=== PATIENT | male | born 1985 | race Hispanic/Latino ===

== ENCOUNTER 2024-05-02 11:14 | Observation (INO) | payer OTHER ==
[2024-05-02] VITALS (26 sets, daily range): BP systolic 119–160; BP diastolic 66–102
[~2024-05-02] VITALS: Ht 170.2 cm; Wt 78.0 kg
[2024-05-02 11:54] LABS: BASO% 0.8 % (0-3); EOS% 3.3 % (0-8); HEMATOCRIT 48.9 % (39.0-50.0); HEMOGLOBIN 15.7 g/dl (14.0-18.0); LYMPH% 29.9 % (15-41); MEAN CELL VOLUME 95.5 fL CALC (80.0-100.0); MEAN CORPUSCULAR HGB 30.7 pG CALC (26.0-32.0); MEAN CORPUSCULAR HGB CONC 32.1 g/dL CAL (32.0-36.0); MONO% 12.2 % (2-13); NEUT# 2.74 thou/uL (1.82-7.42); NEUT% 53.8 % (42-76); RED BLOOD COUNT 5.12 mill/uL (4.70-6.10)
[2024-05-02 12:13] LABS: ALBUMIN 4.5 g/dL (3.2-5.0); BILIRUBIN, TOTAL 0.5 mg/dL (0.2-1.3); CREATININE 1.1 mg/dL (0.7-1.3); POTASSIUM 4.1 mmol/l (3.5-5.1); TOTAL PROTEIN 7.2 g/dL (6.3-8.2)
[2024-05-02] MEDS ORDERED: ATORVASTATIN CA20 MG PO (13:24)
[2024-05-02] MEDS ORDERED: LAMICTAL100 M1 PO (13:26)
[2024-05-02] MEDS ORDERED: CLARITIN10 M1 PO (13:28)
[2024-05-02] MEDS ORDERED: FIORICET PO (13:29)
[2024-05-02] MEDS ORDERED: ADVAIR DISK1 INH (13:32)
[2024-05-02] MEDS ORDERED: DEXTROSE 250 ML IV PRN (15:25)
[2024-05-02] MEDS ORDERED: MORPHINE SULFATE 4 MG/ML VIAL IV PRN (15:30)
[2024-05-02] MEDS ORDERED: ACETAMINOPHEN 325 MG/TAB PO PRN (15:30)
[2024-05-02] MEDS ORDERED: lamoTRIgine 100 MG/TAB PO SCH ×2 (21:00)
[2024-05-02] MEDS ORDERED: ATORVASTATIN CALCIUM 20 MG/TAB PO SCH ×2 (21:00)
[2024-05-02] MEDS ORDERED: FLUTICASONE/SALMETEROL 250 MCG/50 MCG PER DOSE INH IN SCH ×2 (21:00)
[2024-05-03 00:01] VITALS: BP 102/53
[2024-05-03 06:41] LABS: HEMATOCRIT 47.4 % (39.0-50.0); HEMOGLOBIN 15.6 g/dl (14.0-18.0); MEAN CELL VOLUME 95.8 fL CALC (80.0-100.0); MEAN CORPUSCULAR HGB 31.5 pG CALC (26.0-32.0); MEAN CORPUSCULAR HGB CONC 32.9 g/dL CAL (32.0-36.0); RED BLOOD COUNT 4.95 mill/uL (4.70-6.10)
[2024-05-03 06:50] LABS: BILIRUBIN, TOTAL 0.5 mg/dL (0.2-1.3); CREATININE 0.9 mg/dL (0.7-1.3); MAGNESIUM 2.1 mg/dL (1.6-2.3); POTASSIUM 3.9 mmol/l (3.5-5.1); TOTAL PROTEIN 6.5 g/dL (6.3-8.2)
[2024-05-03 08:00] VITALS: BP 99/70
[2024-05-03 12:00] VITALS: BP 118/77
[2024-05-03 16:00] VITALS: BP 114/68
[2024-05-03] MEDS ORDERED: lamoTRIgine 100 MG/TAB PO SCH (21:00)
== END 2024-05-03 16:35 | disposition designated cancer center or children's hospital (05) | DRG 102 ==
LOC: ED 11:14 → ED-I 13:00 → ED 13:11 → ICU 13:12
PROVIDERS: Emergency Medicine; ADMIT Internal Medicine; ATTEND Internal Medicine
DX: R51.9 Headache, unspecified (principal); Q28.2 Arteriovenous malformation of cerebral vessels; G40.109 Localization-related (focal) (partial) symptomatic epilepsy and epileptic syndromes with simple partial seizures, not intractable, without status epilepticus; G43.909 Migraine, unspecified, not intractable, without status migrainosus